=== PATIENT | male | born 2000 | race Caucasian/White ===

== ENCOUNTER 2022-12-19 09:32 | Emergency (ER) | payer MEDICAID ==
[~2022-12-19] VITALS: Ht 177.8 cm; Wt 100.0 kg
[2022-12-19 09:41] VITALS: O2SAT 98
[2022-12-19] MEDS ORDERED: IBUP-2030 MT (11:05)
[2022-12-19 11:40] VITALS: BP 120/70; PULSE 60; RESP 18; TEMP 98.3
== END 2022-12-19 11:58 | disposition home or self-care (01) ==
LOC: ER 09:32
DX: S92.351A Displaced fracture of fifth metatarsal bone, right foot, initial encounter for closed fracture (principal); Z90.49 Acquired absence of other specified parts of digestive tract; W01.0XXA Fall on same level from slipping, tripping and stumbling without subsequent striking against object, initial encounter; Y93.89 Activity, other specified; Y92.89 Other specified places as the place of occurrence of the external cause; Y99.8 Other external cause status
CPT/HCPCS: 73630; 29515; 99283; Z7610